=== PATIENT | female | born 1965 | race Hispanic/Latino ===

== ENCOUNTER → 2019-03-30 | Outpatient (CLI) | payer BC ==
--- NOTE | 2019-03-30 15:22 | Diagnostic Imaging Report ---
Solid-phase gastric emptying study Reason for examination: Abdominal pain; abdominal bloating The protocol used for this study is based on the Consensus Recommendations for Gastric Scintigraphy by the [place] [employer] and the Society of [employer]. Clinical information: The patient is not diabetic. The patient has not had previous gastrointestinal surgery. The patient withheld medication x 24 hours. The patient has been fasting for at least 6 hours prior to this exam. Radiopharmaceutical: Tc-99m sulfur colloid 1 mCi Report: The radiopharmaceutical was added to 1/2 cup egg whites that were then prepared and served with 2 pieces of white bread toasted, 30 grams of jam and 4 ounces of water. The patient took the meal orally without difficulty. Images were obtained of the abdomen in the anterior and posterior projections at 10 minutes post the meal and at 1, 2 and 3 hours. Uptake was determined from the geometric mean of the anterior and posterior counts and the counts were corrected for decay of the radiolabel. The percent gastric retention of the labeled meal at: 1 hour was 67% (normal 30-90%) 2 hours was 29% (normal <60%) 3 hours was 1% (normal <30%) 4 hour measurement not obtained because gastric retention was less than 10% at 3 hours. Impression: The pattern of gastric emptying is normal. The findings do not support the clinical diagnosis of gastroparesis. Signed by: Dr. Karla Blum M.D. on 03/30/2019 3:19 PM
== END ==
LOC: NM 07:52
PROVIDERS: ATTEND Internal Medicine Gastroenterology
DX: Z12.11 Encounter for screening for malignant neoplasm of colon (principal); R10.13 Epigastric pain; R14.0 Abdominal distension (gaseous); E66.9 Obesity, unspecified; Z71.3 Dietary counseling and surveillance
CPT/HCPCS: 78264; A9541